=== PATIENT | male | born 1990 | race Caucasian/White ===

== ENCOUNTER 2021-03-13 16:37 | Emergency (ER) | payer BC, OTHER ==
[~2021-03-13] VITALS: Ht 165.1 cm; Wt 82.2 kg
[2021-03-13 16:48] VITALS: BP 140/89
--- NOTE | 2021-03-13 16:50 | NUR ---
Patient ambulated to bed 12. Urine sample collected.
--- NOTE | 2021-03-13 17:05 | NUR ---
30 y/o M BIB self from home c/o cold-like symptoms + head/shoulder/neck pain. Patient A&Ox4, ambulatory, states symptoms began "a few months ago" that progressively worsened for the past 2-3 weeks. Patient states headache, facial "sinus pressure" 8/10, throbbing/intermittent, radiating to back of eyes, back of head and bilateral temples. Patient also states dizziness, intermittent blurry vision. Patient reports headache and sinus pressure/congestion is affecting his sleep. Pt states Theraflu at 0500 with temporary relief, states symptoms worsen while wearing mask at work. Denies sick household at home and is fully vaccinated. Denies fever, chills, nausea, vomiting, diarrhea, chest pain, SOB, abdominal pain. Bed locked in lowest position, side rails x 1. PMH/Sx/Meds: Denies NKA
[2021-03-13] MEDS ORDERED: ONDANSETRON 4 MG TAB PO ONE (17:35)
[2021-03-13] MEDS ORDERED: MECLIZINE 25 MG TAB PO ONE (17:35)
[2021-03-13] MEDS ORDERED: PSEU1TAB PO (17:41)
[2021-03-13] MEDS ORDERED: MECL-303 PO (17:41)
[2021-03-13] MEDS ORDERED: ONDA-188 PO (17:41)
--- NOTE | 2021-03-13 18:19 | NUR ---
Patient discharged with v/s stable. Written and verbal after care instructions given and explained. Patient alert, oriented and verbalized understanding of instructions. Ambulatory with steady gait. All questions addressed prior to discharge. ID band removed. Patient advised to follow up with PMD. Rx of Meclizine, Ondansetron, Duraflu [id number] (Pseudoeph/Dm/Guaifen/Acetamin given. Patient educated on indication of medication including possible reaction and side effects. Opportunity to ask questions provided and answered.
== END 2021-03-13 18:19 | disposition home or self-care (01) ==
LOC: MED 16:37
DX: J32.9 Chronic sinusitis, unspecified (principal); R42 Dizziness and giddiness; Z79.899 Other long term (current) drug therapy
CPT/HCPCS: 99283; J8597; Q0162